=== PATIENT | male | born 1935 | race Caucasian/White ===

== ENCOUNTER 2016-08-06 | Outpatient (CLI) | payer MEDICARE | END 2016-08-06 10:26 | disposition critical access hospital (66) | CPT/HCPCS: A0425; A0427 ==

== ENCOUNTER 2016-08-06 | Emergency (ER) | payer MEDICARE | END 2016-08-06 11:27 | disposition home or self-care (01) ==

== ENCOUNTER 2017-09-30 08:00 | Outpatient (CLI) | payer MEDICARE ==
[2017-09-30 12:54] LABS: BASOPHILS # (AUTO) 0.1 10^3/uL (0.0-0.1); BASOPHILS % (AUTO) 1.3 %; EOSINOPHILS # (AUTO) 0.1 10^3/uL (0.0-0.7); LYMPHOCYTES % (AUTO) 16.8 %; MEAN CORPUSCULAR HEMOGLOBIN 34.1 pg (27.0-31.0); MEAN CORPUSCULAR HGB CONC 34.7 g/dL (32.0-36.0); MEAN CORPUSCULAR VOLUME 98.2 fL (80.0-94.0); MEAN PLATELET VOLUME 8.6 fL (7.4-11.4); MONOCYTES # (AUTO) 0.6 10^3/uL (0.0-1.0); MONOCYTES % (AUTO) 10.9 %; NEUTROPHILS # (AUTO) 3.9 10^3/uL (1.5-6.6); PLT - PLATELET COUNT 233 10^3/uL (130-450); RED BLOOD COUNT 2.93 10^6/uL (4.70-6.10); RED CELL DISTRIBUTION WIDTH 13.3 % (12.0-15.0); WHITE BLOOD COUNT 5.7 x10^3/uL (4.8-10.8)
[2017-09-30 13:04] LABS: ALBUMIN 4.2 g/dL (3.2-5.5); ALBUMIN/GLOBULIN RATIO 1.8 (1.0-2.2); BILIRUBIN,TOTAL 0.5 mg/dL (0.2-1.0); CALCIUM 8.8 mg/dL (8.5-10.3); CREATININE 1.5 mg/dL (0.6-1.2); TOTAL PROTEIN 6.6 g/dL (6.7-8.2)
== END 2017-09-30 08:01 | disposition home or self-care (01) ==
LOC: LAB.WCP 08:00
PROVIDERS: ATTEND Dermatology
DX: Z79.899 Other long term (current) drug therapy (principal)
CPT/HCPCS: 36415; 80053; 85025

== ENCOUNTER 2017-12-02 09:57 | Day surgery (SDC) | payer MEDICARE ==
[~2017-12-02 09:57] MED LIST: BRIMONIDINE 0.2% OPHTH DROPS 5 ML ONE; BSS/LIDOCAINE/EPINEPHRINE 1 ML SYRINGE ONE; EPINEPHrine 1 MG/ML AMP ONE; TIMOLOL 0.5% OPHTH DROPS ONE; TRIAMCIN/MOXIFLOX OPHTHALMIC 0.6 ML VIAL IO ONE; VANCOMYCIN OPHTHALMI 8MG/0.8ML 8 MG/0.8 ML SYRINGE IO ONE
[2017-12-02] MEDS: PHENYLEPHRINE 2.5% OPHTH 2 ML DROPS RIGHTEYE ONE (10:30)
[2017-12-02] MEDS: CYCLOPENTOLATE 1% OPHTH DROPS 2 ML RIGHTEYE ONE (10:30)
[2017-12-02] MEDS: PROPARACAINE 0.5% OPHTH DROPS 15 ML RIGHTEYE ONE ×2 (10:30→10:53)
[2017-12-02] MEDS: KETOROLAC 0.45% OPHTH DROPS RIGHTEYE ONE (10:30)
[2017-12-02] MEDS ORDERED: PHENYLEPHRINE 2.5% OPHTH 2 ML DROPS ONE (10:34)
[2017-12-02] MEDS ORDERED: PROPARACAINE 0.5% OPHTH DROPS 15 ML ONE (10:34)
[2017-12-02] MEDS ORDERED: KETOROLAC 0.45% OPHTH DROPS ONE (10:34)
[2017-12-02] MEDS ORDERED: CYCLOPENTOLATE 1% OPHTH DROPS 2 ML ONE (10:34)
[2017-12-02] MEDS: LACTATED RINGERS 500 ML IV ONE (10:38)
[2017-12-02] MEDS: CHONDR SULF/HYALURONATE SYRINGE IO ONE (10:58)
[2017-12-02] MEDS: EPINEPHrine 1 MG/ML AMP IVP ONE (10:58)
[2017-12-02] MEDS: TIMOLOL 0.5% OPHTH DROPS OPTH ONE (10:58)
[2017-12-02] MEDS: BRIMONIDINE 0.2% OPHTH DROPS 5 ML OPTH ONE (10:58)
[2017-12-02] MEDS: TRIAMCIN/MOXIFLOX/VANCO 1 ML VIAL IO ONE ×2 (10:59)
[2017-12-02] MEDS: BSS/LIDOCAINE/EPINEPHRINE 1 ML SYRINGE IO ONE (10:59)
[2017-12-02] MEDS ORDERED: MIDAZOLAM 2 MG/2 ML VIAL IVP ONE (11:00)
[2017-12-02 11:23] VITALS: BP 119/69
--- NOTE | 2017-12-02 13:52 | OPERATIVE REPORT ---
DATE OF SERVICE: 12/02/2017 Physician: Kaiden Wang MD PREOPERATIVE DIAGNOSIS: Visually significant cataract, right eye. This was his first cataract surgery. POSTOPERATIVE DIAGNOSIS: Visually significant cataract, right eye. NAME OF PROCEDURE: Phacoemulsification with posterior chamber intraocular lens implant, right eye. SURGEON: Kaiden Wang MD. ANESTHESIA: Monitored anesthesia care. COMPLICATIONS: None. OPERATIVE INDICATIONS: This is an 82-year-old man with progressive vision loss in the right eye due to 3+ nuclear sclerotic cataract. Best corrected visual acuity was 20/25 with glare to count fingers at 8 feet in the right eye. INDICATIONS FOR SURGERY 1. Overall decrease in vision. 2. Difficulty reading. 3. Difficulty tracking a golf ball. INFORMED CONSENT: He was consented at length concerning risks and benefits of cataract surgery, after which he expressed a desire to proceed with surgery. OPERATIVE PROCEDURE: Patient was taken into OR #3 and placed under monitored anesthesia care. A surgical timeout was conducted confirming correct patient, correct procedure, and correct surgical site. He was given topical anesthesia, then prepped and draped in usual sterile fashion. Eye was entered at the 12 and 9-o'clock positions. Intracameral Shugarcaine was injected into the anterior chamber, followed by Viscoat. A continuous-tear curvilinear capsulorrhexis was performed. The nucleus was hydrodissected and phacoemulsified. Cortex was evacuated using automated infusion and aspiration. Provisc was injected in the capsular bag, and a 20.0-diopter intraocular lens was inserted in the bag. Approximately 0.9 mL of a mixture of triamcinolone, moxifloxacin, and vancomycin was injected subconjunctivally in the superior quadrant for infection and inflammation prophylaxis. I and A was used to evacuate the viscoelastic materials. Eye was inflated to physiologic pressure using a balanced salt solution and found to be watertight. The patient was taken from the operating room in good condition and given postoperative instructions. TD: 12/02/2017 11:20
== END 2017-12-02 09:58 | disposition home or self-care (01) ==
LOC: SDS 09:57
PROVIDERS: ATTEND Ophthalmology
PROC: 08RJ3JZ Replacement of Right Lens with Synthetic Substitute, Percutaneous Approach (ICD-10-PCS; principal; 2017-12-02 11:00)
DX: H25.11 Age-related nuclear cataract, right eye (principal); I12.9 Hypertensive chronic kidney disease with stage 1 through stage 4 chronic kidney disease, or unspecified chronic kidney disease; N18.9 Chronic kidney disease, unspecified; E78.5 Hyperlipidemia, unspecified; I48.91 Unspecified atrial fibrillation; J44.9 Chronic obstructive pulmonary disease, unspecified; F32.9 Major depressive disorder, single episode, unspecified; F41.9 Anxiety disorder, unspecified; Z95.0 Presence of cardiac pacemaker; I25.10 Atherosclerotic heart disease of native coronary artery without angina pectoris; R42 Dizziness and giddiness; Z79.01 Long term (current) use of anticoagulants; Z87.891 Personal history of nicotine dependence
CPT/HCPCS: 66984; A9270; J3490; V2632

== ENCOUNTER 2018-01-06 07:19 | Day surgery (SDC) | payer MEDICARE ==
[~2018-01-06 07:19] MED LIST changes: +CYCLOPENTOLATE 1% OPHTH DROPS 2 ML ONE; +KETOROLAC 0.45% OPHTH DROPS ONE; +PHENYLEPHRINE 2.5% OPHTH 2 ML DROPS ONE; +PROPARACAINE 0.5% OPHTH DROPS 15 ML ONE
[2018-01-06] MEDS ORDERED: PROPARACAINE 0.5% OPHTH DROPS 15 ML LEFTEYE ONE ×2 (07:35→08:30)
[2018-01-06] MEDS ORDERED: PHENYLEPHRINE 2.5% OPHTH 2 ML DROPS LEFTEYE ONE (07:35)
[2018-01-06] MEDS ORDERED: KETOROLAC 0.45% OPHTH DROPS LEFTEYE ONE (07:35)
[2018-01-06] MEDS ORDERED: CYCLOPENTOLATE 1% OPHTH DROPS 2 ML LEFTEYE ONE (07:35)
[2018-01-06] MEDS ORDERED: LACTATED RINGERS 500 ML IV ONE (07:45)
[2018-01-06] MEDS ORDERED: EPINEPHrine 1 MG/ML AMP IR ONE (08:27)
[2018-01-06] MEDS ORDERED: BRIMONIDINE 0.2% OPHTH DROPS 5 ML OPTH ONE (08:27)
[2018-01-06] MEDS ORDERED: CHONDR SULF/HYALURONATE SYRINGE IO ONE (08:28)
[2018-01-06] MEDS ORDERED: TIMOLOL 0.5% OPHTH DROPS OPTH ONE (08:28)
[2018-01-06] MEDS ORDERED: BSS/LIDOCAINE/EPINEPHRINE 1 ML SYRINGE IO ONE ×2 (08:29)
[2018-01-06] MEDS ORDERED: TRIAMCIN/MOXIFLOX/VANCO 1 ML VIAL IO ONE ×2 (08:29)
[2018-01-06] MEDS ORDERED: VANCOMYCIN OPHTHALMI 8MG/0.8ML 8 MG/0.8 ML SYRINGE IO ONE ×3 (08:31)
[2018-01-06] MEDS ORDERED: MIDAZOLAM 2 MG/2 ML VIAL IVP ONE (08:35)
[2018-01-06 09:12] VITALS: BP 113/86
--- NOTE | 2018-01-06 11:04 | OPERATIVE REPORT ---
DATE OF SERVICE: 01/06/2018 Physician: Kaiden Wang MD PREOPERATIVE DIAGNOSIS: Visually significant cataract, left eye. Cataract surgery was performed on the right eye on 12/02/2017. POSTOPERATIVE DIAGNOSIS: Visually significant cataract, left eye. Cataract surgery was performed on the right eye on 12/02/2017. NAME OF PROCEDURE: Phacoemulsification with posterior chamber intraocular lens implant, left eye. SURGEON: Kaiden Wang MD ANESTHESIA: Monitored anesthesia care. COMPLICATIONS: None. OPERATIVE INDICATIONS: This is an 82-year-old man with progressive vision loss in the left eye due t o 3+ nuclear sclerotic cataract. Best corrected visual acuity was 20/30 with glare to hand motion vi tobias in the left eye. Indications for surgery were overall decrease in vision, difficulty seeing wor ds on a computer screen, difficulty reading and difficulty tracking a golf ball. He was consented at length concerning the risks and benefits of cataract surgery, after which he expressed a desire to p roceed with surgery. OPERATIVE PROCEDURE: The patient was taken into OR #3 and placed under monitored anesthesia care. A surgical timeout was conducted confirming correct patient, correct procedure, and correct surgical s ite. He was given topical anesthesia and then prepped and draped in the usual sterile fashion. The eye was entered at the 6 and 3 o'clock positions. Intracameral Shugarcaine was injected into the ant erior chamber, followed by Viscoat. A continuous-tear curvilinear capsulorrhexis was performed. The nucleus was hydrodissected and phacoemulsified. Cortex was evacuated using automated infusion and a spiration. Provisc was injected in the capsular bag, and a 20.0 diopter intraocular lens was inserte d in the bag. Approximately 0.7 mL of a mixture of triamcinolone, moxifloxacin, and vancomycin was i njected subconjunctivally in the superior quadrant for infection and inflammation prophylaxis. I and A was used to evacuate the viscoelastic material. The eye was inflated to physiologic pressure usin g a balanced salt solution and found to be watertight. The patient was taken from the operating room in good condition and given postoperative instructions. TD: 01/06/2018 09:03
== END 2018-01-06 07:20 | disposition home or self-care (01) ==
LOC: SDS 07:19
PROVIDERS: ATTEND Ophthalmology
PROC: 08RK3JZ Replacement of Left Lens with Synthetic Substitute, Percutaneous Approach (ICD-10-PCS; principal; 2018-01-06 08:30)
DX: H25.12 Age-related nuclear cataract, left eye (principal); J44.9 Chronic obstructive pulmonary disease, unspecified; Z87.891 Personal history of nicotine dependence; I12.9 Hypertensive chronic kidney disease with stage 1 through stage 4 chronic kidney disease, or unspecified chronic kidney disease; N18.9 Chronic kidney disease, unspecified
CPT/HCPCS: 66984; A9270; J3490; V2632

== ENCOUNTER 2020-02-19 13:02 | Outpatient (CLI) | payer MEDICARE ==
[2020-02-19 14:10] VITALS: BP 123/68
--- NOTE | 2020-02-19 14:10 | SLEEP CARE CONSULTATION ---
Information from patient questionnaire entered by Alma Rosa Tellez. I have reviewed and concur with the information entered by Alma Rosa Tellez. This document represents the service I personally performed and the decisions made by me, Imani Gaviria ARNP. History of Present Illness Service Date and Time: 02/19/2020 1302 Reason for Visit: New patient Chief Complaint: reports: Fatigue. denies: Insomnia, Unrefreshed sleep, Snoring, Excessive daytime sleepiness, Observed pauses in breathing, Frequent awakenings at night, Other Date of Onset: years Usual bedtime: 2100 Time it takes to fall asleep: 30 minutes Snores at night: No Observed to quit breathing while asleep: No Sleeps alone due to snoring: No Number of times waking at night: 0 Reasons for waking at night: reports: Bathroom. denies: Choking, Snoring, Gasping for air Toss, Turn, or Twitch while sleeping: No Recalls having dreams: Yes Usually gets out of bed at: 0630 Feels refreshed in the morning: Yes Morning headache: No Sleepy or fatigued during the day: Yes Ever fallen asleep while driving: No Takes day naps: Yes (most days for about 30 minutes) Dreams during day naps: No Prior sleep studies: No Additional HPI information: I had the pleasure of seeing GREG HUNTER today regarding the possibility of him having a sleep disorder. His current complaints are fatigue. Patient does not think that he has sleep apnea, he is here at the request of his physician. He has a history of dizziness, has a pacemaker, and had a heart attack in June 2019. He states his has told him he does not snore or stop breathing during the night. He has never woken up snoring, choking or gasping for air. He states he take mirtazapine nightly and does not wake up during the night. He states he wakes up refreshed in the morning but does take a nap daily for about 30 minutes in his chair. He denies memory problems and states he is normal for 84. He forgot to bring his medication list and cannot remember the names of the medications he is currently taking. He denies any family history of sleep disordered breathing. - Parasomnia Symptoms Ever been unable to move upon waking from sleep: No Walks in sleep: No Talks in sleep: No Ever acted out dreams in sleep: No Ever felt weak in the knees when startled or emotional: No Bothered by creepy, crawly, restless sensations in legs: No Problems with memory or concentration: No (good as can be for 84) Past Medical History Past Medical History: reports: Hypertension, Claustrophobia, Arthritis, Coronary Heart Disease (has a pacemaker; Heart attack June 07, 2019), Anxiety, Other (dizziness). denies: Congestive Heart Failure, Arrythmia, Hypothyroidism, Anemia, Impotence, Depression, GERD Social History The patient's occupation is retired. Patient is and lives in [place]. Have you smoked in the past 12 months: No Cigarettes per day (20/pack): 10 Quit date: 1962 Alcohol use: Yes Alcohol amount and frequency: at parties Caffeine use: Yes Caffeine amount and frequency: 1 cup coffee daily, maybe 2 Family History Family history of sleep disordered breathing: No Allergies and Home Medications Drug allergies reviewed: Yes (NKDA) Home medication list reviewed: Yes (forgot to bring list and cannot remember names) Allergy and home medication list: mirtazapine for sleep, nightly Review of Systems Cardiovascular: reports: high blood pressure, leg or foot swelling, other (Had AR in June). denies: palpitations, chest pain, irregular heart rate or pulse Respiratory: reports: shortness of breath Gastrointestinal: denies: heartburn, difficulty swallowing Urinary: denies: impotence Neurological: reports: gait or balance problems. denies: headaches, seizure, head trauma, speech dysfunction Psychiatric: reports: anxiety, claustrophobia. denies: depression, mood disorder Ear/Nose/Throat: reports: nasal congestion, tonsillectomy. denies: sinus problems, nose bleeds, dry mouth/throat, injury to nose, wisdom teeth removed (unsure) Endocrine: denies: thyroid disease Musculoskeletal: reports: joint pain Immunologic: denies: allergies to food or environment Physical Exam Blood Pressure: 123/68 Cuff size: regular Heart Rate: 70 O2 Saturation: 96 Height: 5 ft 11 in Weight: 184 lb Body Mass Index: 25.7 BMI Classification: Overweight Neck circumference: 16 (inches) HEENT: No craniofacial malformation Nostrils: patent to airflow Turbinates: swollen Septum: deviated left Mouth and throat: narrow oropharynx Soft palate: normal Hard palate: normal Uvula: normal Uvula visualization: 50% Mallampati Class II Tongue: normal in size Tonsils: absent bilaterally Chin and jaw: normal size and position Neck: normal w/o lymphadenopathy or thyromegaly Heart: regular rate and rhythm Lungs: clear bilaterally Impression and Plan 1. Suspected Obstructive Sleep Apnea-Hypopnea Syndrome, as suggested by a history of fatigue and dizziness. He has a history of hypertension, heart attack in June 2019 and has a pacemaker (on warfarin). I reviewed with patient that a narrow oropharynx and obesity are common predisposing factors for obstructive sleep apnea-hypopnea syndrome. I recommend proceeding to polysomnography to confirm the diagnosis and to assess severity. If the patient has significant sleep disordered breathing, a manual CPAP titration study will also be performed to find the optimal treatment pressure. I informed the patient of what the sleep studies involve and after some discussion, obtained agreement to proceed. The pathophysiology of obstructive sleep apnea-hypopnea syndrome was discussed with the patient and health risks of cardiovascular and cerebrovascular disease if not treated. Risks of drowsy driving discussed in detail and patient advised to avoid long distance driving and to rod puller at the first sign of drowsiness. Patient agreed to plan. * Schedule polysomnography +- manual CPAP titration study. * Avoid long distance driving or driving when feeling sleepy. * Avoid alcohol, sedative and muscle relaxant around bedtime. * Attempt to lose weight. * Review instructions provided by trained office staff on how to prepare for the sleep study. * Return for follow-up after sleep study completed. Visit Type: In Office Time Spent with Patient (minutes): 30 Provider Statement: I spent 100% of the Face to Face Visit with the patient with greater than 50% spent counseling the patient and coordination of care.
== END 2020-02-19 13:03 | disposition home or self-care (01) ==
LOC: SC 13:02
PROVIDERS: ATTEND Nurse Practitioner Family
DX: R53.83 Other fatigue (principal); I25.2 Old myocardial infarction; I10 Essential (primary) hypertension; I25.10 Atherosclerotic heart disease of native coronary artery without angina pectoris; E66.3 Overweight; Z68.25 Body mass index [BMI] 25.0-25.9, adult
CPT/HCPCS: 99204; G0463; 99212

== ENCOUNTER 2020-12-11 15:37 | Emergency (ER) | payer MEDICARE ==
[2020-12-11 16:11] LABS: BASOPHILS % (AUTO) 0.5 %; EOSINOPHILS % (AUTO) 0.7 %; HCT - HEMATOCRIT 38.1 % (42.0-52.0); HGB - HEMOGLOBIN 12.8 g/dL (14.0-18.0); LYMPHOCYTES # (AUTO) 0.6 10^3/uL (1.5-3.5); LYMPHOCYTES % (AUTO) 10.1 %; MEAN CORPUSCULAR HGB CONC 33.6 g/dL (32.0-36.0); MEAN CORPUSCULAR VOLUME 101.1 fL (80.0-94.0); MEAN PLATELET VOLUME 10.2 fL (7.4-11.4); MONOCYTES # (AUTO) 0.7 10^3/uL (0.0-1.0); MONOCYTES % (AUTO) 11.5 %; NEUTROPHILS # (AUTO) 4.6 10^3/uL (1.5-6.6); NEUTROPHILS % (AUTO) 76.9 %; PLT - PLATELET COUNT 200 10^3/uL (130-450); RED BLOOD COUNT 3.77 10^6/uL (4.70-6.10); RED CELL DISTRIBUTION WIDTH 13.4 % (12.0-15.0)
--- NOTE | 2020-12-11 18:09 | ED Physician Documentation ---
History of Present Illness - Stated complaint Stated Complaint: ABNORMAL LABS - Chief complaint Chief Complaint: Abd Pain - History obtained from History obtained from: Patient - History of Present Illness Timing: Today Pain level max: 0 Pain level now: 0 - Additonal information Additional information: 85-year-old male presents to the emergency department stating that his whole blood pro time today was greater than 8. Sent here for evaluation. Patient is asymptomatic. No other complaints. Denies any bleeding. Denies any trauma. Review of Systems Constitutional: denies: Fever, Chills Cardiac: denies: Chest pain / pressure Respiratory: denies: Cough GI: denies: Abdominal Pain, Nausea, Vomiting, Diarrhea Skin: denies: Rash Musculoskeletal: denies: Neck pain, Back pain Neurologic: denies: Headache PD PAST MEDICAL HISTORY - Past Medical History Cardiovascular: Hypertension, High cholesterol Respiratory: COPD, Shortness of breath Neuro: None Endocrine/Autoimmune: None GI: None : None HEENT: Chronic vision loss Psych: Depression, Anxiety Musculoskeletal: Osteoarthritis, Fatigue Derm: None - Past Surgical History Past Surgical History: Yes General: Colonoscopy Ortho: Arthroscopic surgery Cardiovascular: Pacemaker HEENT: Cataracts - Present Medications Home Medications: Ambulatory Orders Medication Instructions Recorded Confirmed Hydroxyzine HCl 25 mg PO DAILY 04/23/14 01/06/18 Lisinopril 1 tab PO DAILY 04/23/14 01/06/18 Lovastatin 40 mg PO DAILY 04/23/14 01/06/18 Minocycline [Minocycline HCl] 100 mg PO BID 04/23/14 01/06/18 Mirtazapine [Remeron] 45 mg ORAL DAILY 04/23/14 01/06/18 diazePAM [Diazepam] 5 mg ORAL DAILY 04/23/14 01/05/18 Dapsone 50 mg PO DAILY 05/21/14 01/05/18 Omeprazole 20 mg PO DAILY 07/27/14 01/06/18 Sertraline [Zoloft] 75 mg PO DAILY 07/27/14 01/06/18 Warfarin Sodium 5 mg PO DAILY 12/02/17 01/06/18 - Allergies Allergies/Adverse Reactions: Allergies Allergy/AdvReac Type Severity Reaction Status Date / Time No Known Drug Allergies Allergy Verified 12/11/20 15:55 - Social History Does the pt smoke?: No Smoking Status: Never smoker - Immunizations Immunizations are current?: Yes Immunizations: TDAP >10years/unknown - POLST Patient has POLST: No PD ED PE NORMAL - Vitals Vital signs reviewed: Yes - General General: Alert and oriented X 3, No acute distress, Well developed/nourished - HEENT HEENT: PERRL, Moist mucous membranes - Neck Neck: Supple, no meningeal sign - Cardiac Cardiac: RRR, Strong equal pulses - Respiratory Respiratory: No respiratory distress, Clear bilaterally - Abdomen Abdomen: Soft, Non tender, Non distended - Derm Derm: Warm and dry - Extremities Extremities: No edema, No calf tenderness / cord - Neuro Neuro: Alert and oriented X 3 - Psych Psych: Normal mood, Normal affect Results - Vitals Vitals: Vital Signs - 24 hr 12/11/20 12/11/20 15:50 18:20 Temperature 36.6 C 36.8 C Heart Rate 70 70 Respiratory 16 20 Rate Blood Pressure 136/75 H 143/78 H O2 Saturation 100 98 Oxygen O2 Source Room air - Labs Labs: Laboratory Tests 12/11/20 12/11/20 12/11/20 16:05 16:05 17:08 WBC 6.0 RBC 3.77 L Hgb 12.8 L Hct 38.1 L MCV 101.1 H MCH 34.0 H MCHC 33.6 RDW 13.4 Plt Count 200 MPV 10.2 Neut # (Auto) 4.6 Lymph # (Auto) 0.6 L Hemphill # (Auto) 0.7 Eos # (Auto) 0.0 Baso # (Auto) 0.0 Absolute Nucleated RBC 0.00 Nucleated RBC % 0.0 PT INR (Fingerstick) INR 12/11/20 17:39 WBC RBC Hgb Hct MCV MCH MCHC RDW Plt Count MPV Neut # (Auto) Lymph # (Auto) Hemphill # (Auto) Eos # (Auto) Baso # (Auto) Absolute Nucleated RBC Nucleated RBC % PT INR (Fingerstick) > 8.0 H* INR PD MEDICAL DECISION MAKING - ED course Complexity details: reviewed results, re-evaluated patient, considered differential, d/w patient ED course: 85-year-old male currently on warfarin. Sent here for supratherapeutic INR on whole blood pro time. His INR was drawn here, but apparently there was interference with the machine and the sample could not be read. Therefore a second sample was drawn with the same result. The lab technical account representative recommended a whole blood pro time, this was repeated and is greater than 8. They state that the interference on the blood tube sample is not the same types of interference that would interfere with a fingerstick sample, therefore they recommend treating him as a supratherapeutic INR. Vitamin K was given. We will have him hold his warfarin for 2 days and get his INR rechecked. Patient has no active bleeding. Patient counseled regarding signs and sympto ms for which I believe and urgent re-evaluation would be necessary. Patient with good understanding of and agreement to plan and is comfortable going home at this time This document was made in part using voice recognition software. While efforts are made to proofread this document, sound alike and grammatical errors may occur. Departure - Departure Disposition: 01 Home, Self Care Clinical Impression: Supratherapeutic INR Condition: Good Instructions: International Normalized Ratio Follow-Up: Don Teixeira MD [Primary Care Provider] - (within 2 days ) Comments: You need to have your INR rechecked in 2 days with your doctor. Stop your warfarin until that time. Return if you worsen. It appears that your INR is too high to be calculated tonight. Discharge Date/Time: 12/11/20 19:00
[2020-12-11 18:29] VITALS: BP 143/78
[2020-12-11] MEDS ORDERED: PHYTONADIONE 10 MG/ML AMP PO STA (18:39)
== END 2020-12-11 19:00 | disposition home or self-care (01) ==
LOC: ED 15:37
DX: R79.1 Abnormal coagulation profile (principal); Z79.01 Long term (current) use of anticoagulants
CPT/HCPCS: 36415; 85025; 85610; 99283

== ENCOUNTER 2021-09-25 14:24 | Outpatient (CLI) | payer MEDICARE ==
--- NOTE | 2021-09-25 16:28 | Ultrasound Report ---
PROCEDURE: Duplex Ext Veins Bilateral INDICATIONS: IVETTE MURGUIA TECHNIQUE: Real-time imaging, as well as color and pulse Doppler interrogation, were performed of the deep veins of both legs from the inguinal ligament to the popliteal fossa. COMPARISON: None. FINDINGS: The deep veins are normally compressible, and free of intraluminal thrombus. Color and pu lse Doppler demonstrate normal phasic intravascular flow. There is normal augmentation response to d istal compression maneuver. IMPRESSION: No sonographic evidence of DVT. Reviewed by: Cesar Palomino MD on 09/25/2021 4:27 PM PDT Approved by: Cesar Palomino MD on 09/25/2021 4:27 PM PDT Station ID: [id number]
--- NOTE | 2021-09-25 17:37 | Ultrasound Report ---
PROCEDURE: Duplex Lwr Ext Arterial Bilat INDICATIONS: EDEMA TECHNIQUE: Color and pulse Doppler interrogation was performed of both lower extremity arterial systems, with im age documentation. COMPARISON: None FINDINGS: Right lower extremity: Common femoral artery: 78 cm/sec, with triphasic flow. Deep femoral artery: 61.1 cm/sec, with triphasic flow. Proximal superficial femoral artery: 105.4 cm/sec, with triphasic flow. Mid superficial femoral artery: 85.4 cm/sec, with triphasic flow. Distal superficial femoral artery: 64 cm/sec, with triphasic flow. Popliteal artery: 52.3 cm/sec, with triphasic flow. Posterior tibial artery: 117 cm/sec, with triphasic flow. Anterior tibial artery/dorsalis pedis: 59.8 cm/sec, with triphasic flow. Pearce-scale imaging description: Moderate calcific plaque is present within the right common femoral artery and the right proximal and mid superficial femoral artery. Left lower extremity: Common femoral artery: 69.8 cm/sec, with triphasic flow. Deep femoral artery: 81.7 cm/sec, with triphasic flow. Proximal superficial femoral artery: 61.9 cm/sec, with triphasic flow. Mid superficial femoral artery: 73.1 cm/sec, with triphasic flow. Distal superficial femoral artery: 59 cm/sec, with triphasic flow. Popliteal artery: 52.4 cm/sec, with triphasic flow. Posterior tibial artery: 78 cm/sec, with triphasic flow. Anterior tibial artery/dorsalis pedis: 43.7 cm/sec, with triphasic flow. Pearce-scale imaging description: No hemodynamically significant stenosis IMPRESSION: 1. Triphasic waveforms throughout the bilateral lower extremities. 2. Grayscale imaging suggesting mild stenosis of the common femoral artery and proximal superficial f emoral artery. However, triphasic waveforms are present without elevated velocities to suggest hemody namically significant stenosis at this time. Reviewed by: Dea Tao MD on 09/25/2021 5:35 PM PDT Approved by: Dea Tao MD on 09/25/2021 5:35 PM PDT Station ID: [id number]
== END 2021-09-25 14:25 | disposition home or self-care (01) ==
LOC: DI 14:24
PROVIDERS: ATTEND Internal Medicine
DX: R60.0 Localized edema (principal); I70.203 Unspecified atherosclerosis of native arteries of extremities, bilateral legs
CPT/HCPCS: 93925; 93970